=== PATIENT | male | born 1950 | race Caucasian/White ===

== ENCOUNTER → 2020-02-19 | Outpatient (CLI) | payer BC | LOC: COL.RAD 07:08 | DX: M19.012 Primary osteoarthritis, left shoulder (principal); M75.122 Complete rotator cuff tear or rupture of left shoulder, not specified as traumatic ==

== ENCOUNTER → 2024-01-17 | Outpatient (CLI) | payer BC ==
[2006-01-30 14:35] VITALS: TEMP 97.9
== END ==
LOC: COL.RAD 10:14
DX: M16.0 Bilateral primary osteoarthritis of hip (principal)